=== PATIENT | female | born 1955 | race Two or more races ===

== ENCOUNTER 2022-03-13 13:53 | Inpatient (IN) | payer MEDICAID ==
[~2022-03-13] VITALS: Ht 144.8 cm; Wt 80.0 kg
[2022-03-13 14:31] LABS: Basophils # (auto) 0 10 ^3/uL (0-0.2); Eosinophils # (auto) 0.1 10 ^3/uL (0-0.8); Hemoglobin 7.1 g/dL (12.2-16.2); Lymphocytes # (auto) 0.3 10 ^3/uL (0.4-5.4); Mean Corpuscular Hemoglobin 26.2 pg (28.0-32.0); Monocytes # (auto) 0.5 10 ^3/uL (0-1.3); Nucleated Red Blood Cells % 0.1 %; White Blood Cell 3.2 10^3/uL (4.4-10.8)
[2022-03-13 14:32] LABS: Basophils % (auto) 0.5 % (0.0-2.0); Eosinophils % (auto) 1.6 % (0.0-7.0); Hematocrit 22.4 % (36.0-46.0); Lymphocytes % (auto) 9.9 % (10.0-50.0); Mean Corpuscular Hgb Conc. 31.7 g/dL (32.0-36.0); Mean Corpuscular Volume 82.5 fL (80.0-100.0); Monocytes % (auto) 16.7 % (0.0-12.0); Neutrophils # (auto) 2.3 10 ^3/uL (1.6-8.6); Neutrophils % (auto) 71.3 % (37.0-80.0); Red Blood Cells 2.72 10^6/uL (4.0-5.20); Red Cell Distribution Width 19.2 % (11.8-14.3)
[2022-03-13 14:58] LABS: Albumin 2.8 g/dL (3.4-5.0); Bilirubin, Total 0.6 mg/dL (0.2-1.0); Calcium 9.4 mg/dL (8.5-10.1); Potassium 4.4 mmol/L (3.5-5.1); Total Protein 6.6 g/dL (6.4-8.2)
[2022-03-13 16:08] LABS: INR 1.77 (0.9-1.15); Partial Thromboplastin Time 63.8 sec (24.6-33.4)
[2022-03-13] MEDS ORDERED: NITROGLYCERIN 0.4 MG SL TAB SL PRN (19:30)
[2022-03-13] MEDS ORDERED: MORPHINE SULFATE INJ 2 MG/ml SYRG IV PRN (19:30)
[2022-03-13] MEDS ORDERED: GABA300C10 PO (19:44)
[2022-03-13] MEDS ORDERED: FURO40TA4 PO (19:44)
[2022-03-13] MEDS ORDERED: DEXTROSE (50%) 50ML SYRG IV PRN (19:45)
[2022-03-13] MEDS: SODIUM CHLORIDE 0.9% 1,000 ML IV SCH (19:45)
[2022-03-13] MEDS ORDERED: FUROSEMIDE 20 MG/2 ML VIAL IV ONE (19:45)
[2022-03-13 20:55] LABS: Cholesterol 119 mg/dL (< 200); HDL Cholesterol 18 mg/dL (40-59); LDL Cholesterol 83 mg/dL (< 100); Triglycerides 115 mg/dL (< 150)
[2022-03-13] MEDS: InsuLIN REG 1unit/0.01ml Soln (100units/ml) SC SCH (22:00)
[2022-03-13] MEDS: ACCU-CHEK COMFORT CURVE STRIP VI SCH (22:00)
[2022-03-14] VITALS (11 sets, daily range): BP systolic 89–140; BP diastolic 29–79
[2022-03-14 04:36] LABS: Basophils # (auto) 0 10 ^3/uL (0-0.2); Eosinophils # (auto) 0 10 ^3/uL (0-0.8); Lymphocytes # (auto) 0.3 10 ^3/uL (0.4-5.4); Monocytes # (auto) 0.5 10 ^3/uL (0-1.3); Neutrophils # (auto) 2.6 10 ^3/uL (1.6-8.6)
[2022-03-14 04:39] LABS: Basophils % (auto) 0.3 % (0.0-2.0); Eosinophils % (auto) 0.9 % (0.0-7.0); Hematocrit 20.4 % (36.0-46.0); Mean Corpuscular Hemoglobin 26.3 pg (28.0-32.0); Mean Corpuscular Hgb Conc. 31.8 g/dL (32.0-36.0); Mean Corpuscular Volume 82.7 fL (80.0-100.0); Neutrophils % (auto) 76.8 % (37.0-80.0); Red Blood Cells 2.47 10^6/uL (4.0-5.20); White Blood Cell 3.4 10^3/uL (4.4-10.8)
[2022-03-14 04:54] LABS: Albumin 2.9 g/dL (3.4-5.0); Calcium 9.3 mg/dL (8.5-10.1); Hemoglobin 6.5 g/dL (12.2-16.2); Potassium 4.3 mmol/L (3.5-5.1)
[2022-03-14 04:57] LABS: BUN/Creatinine Ratio 35.9; Bilirubin, Total 0.8 mg/dL (0.2-1.0); Total Protein 6.3 g/dL (6.4-8.2)
[2022-03-14] MEDS: ACCU-CHEK COMFORT CURVE STRIP VI SCH ×4 (06:59→23:21)
[2022-03-14] MEDS: InsuLIN REG 1unit/0.01ml Soln (100units/ml) SC SCH ×4 (07:03→23:26)
[2022-03-14] MEDS: SODIUM CHLORIDE 0.9% 1,000 ML IV SCH (07:09)
[2022-03-14] MEDS: GABAPENTIN 300 MG CAP PO SCH (10:37)
[2022-03-14] MEDS: FUROSEMIDE 40 MG TAB PO SCH (10:37)
[2022-03-14] MEDS ORDERED: diphenhdrAMINE HCL 25 MG CAP PO PRN (12:00)
[2022-03-14] MEDS ORDERED: PHYTONADIONE (VIT K)10 MG/ML 1ML VIAL SUBCUT ONE (12:00)
[2022-03-14 13:22] LABS: % Iron Saturation 9.3 % (15-50)
[2022-03-15 06:27] LABS: Basophils # (auto) 0 10 ^3/uL (0-0.2); Basophils % (auto) 0.3 % (0.0-2.0); Eosinophils # (auto) 0.1 10 ^3/uL (0-0.8); Eosinophils % (auto) 3.6 % (0.0-7.0); Hematocrit 25.9 % (36.0-46.0); Hemoglobin 8.4 g/dL (12.2-16.2); Lymphocytes # (auto) 0.2 10 ^3/uL (0.4-5.4); Lymphocytes % (auto) 6.7 % (10.0-50.0); Mean Corpuscular Hgb Conc. 32.3 g/dL (32.0-36.0); Mean Corpuscular Volume 83.4 fL (80.0-100.0); Monocytes # (auto) 0.5 10 ^3/uL (0-1.3); Monocytes % (auto) 16.3 % (0.0-12.0); Neutrophils # (auto) 2.4 10 ^3/uL (1.6-8.6); Neutrophils % (auto) 73.1 % (37.0-80.0); Nucleated Red Blood Cells % 0.1 %; Red Blood Cells 3.11 10^6/uL (4.0-5.20); Red Cell Distribution Width 18.3 % (11.8-14.3); White Blood Cell 3.3 10^3/uL (4.4-10.8)
[2022-03-15 06:33] LABS: Partial Thromboplastin Time 30.5 sec (24.6-33.4)
[2022-03-15 06:43] LABS: Albumin 2.5 g/dL (3.4-5.0); Calcium 8.6 mg/dL (8.5-10.1)
[2022-03-15] MEDS: ACCU-CHEK COMFORT CURVE STRIP VI SCH ×2 (06:45→11:30)
[2022-03-15 06:48] LABS: Total Protein 6.3 g/dL (6.4-8.2)
[2022-03-15] MEDS: InsuLIN REG 1unit/0.01ml Soln (100units/ml) SC SCH ×2 (06:48→12:24)
[2022-03-15] MEDS: GABAPENTIN 300 MG CAP PO SCH (11:07)
[2022-03-15] MEDS: FUROSEMIDE 40 MG TAB PO SCH (11:13)
[2022-03-15 15:43] VITALS: BP 137/49
== END 2022-03-15 16:27 | disposition home or self-care (01) | DRG 663 ==
LOC: ER 13:53 → TELE 19:25
PROVIDERS: ADMIT Registered Nurse; ATTEND Hospitalist
PROC: 30233K1 Transfusion of Nonautologous Frozen Plasma into Peripheral Vein, Percutaneous Approach (ICD-10-PCS; principal; 2022-03-14)
DX: D64.9 Anemia, unspecified (principal); J90 Pleural effusion, not elsewhere classified; D68.4 Acquired coagulation factor deficiency; C22.9 Malignant neoplasm of liver, not specified as primary or secondary; E88.09 Other disorders of plasma-protein metabolism, not elsewhere classified; R18.8 Other ascites; Z20.822 Contact with and (suspected) exposure to COVID-19; E11.9 Type 2 diabetes mellitus without complications; I10 Essential (primary) hypertension; I25.10 Atherosclerotic heart disease of native coronary artery without angina pectoris; J45.909 Unspecified asthma, uncomplicated; K74.60 Unspecified cirrhosis of liver; Z80.9 Family history of malignant neoplasm, unspecified; Z82.3 Family history of stroke; Z85.05 Personal history of malignant neoplasm of liver
CPT/HCPCS: 36415; 71046; 74176; 76705; 80053; 80061; 82105; 82962; 83036; 83540; 83550; 83605; 83880; 84443; 84484; 85025; 85610; 85730; 86850; 86900; 86901; 86920; 87040; 87426; 93005; 93306; G0378; J1815; J3430